=== PATIENT | female | born 1995 | race Caucasian/White ===

== ENCOUNTER 2016-10-10 18:32 | Emergency (ER) | payer BC ==
[2016-10-10 19:47] VITALS: BP 123/73
--- NOTE | 2016-10-10 20:23 | UC ---
Complaint Female HPI - HPI Summary HPI Summary: 1WEEK OF DYSURIA, INCREASED FREQUENCY, INCONTINENCE AND LOW BACK PAIN. PT VOMITED X1 2 DAYS AGO (PT HAS SEVERE GERD AND RAN OUT OF PPI- THOUGHT THAT MIGHT ACCOUNT FOR VOMITING). HAS FELT FEVERISH, CHILLS AND SWEATY ON AND OFF( IS IN THE PROCESS OF CHANGING PSYCH MEDS AND THOUGHT THAT THAT MIGHT ACCOUNT FOR THOSE SX). HAS BEEN STRUGGLING MENTALLY AND EMOTIONALLY LATELY. MUCH INCREASED STRESS. INCREASED SUICIDAL IDEATION. "IF I COULD THINK OF A WAY TO DO IT THAT WOULD WORK, I WOULD." - History Of Current Complaint Chief Complaint: UCGU Stated Complaint: URINARY Time Seen by Provider: 10/10/16 19:32 Hx Obtained From: Patient Hx Last Menstrual Period: 09/27/16 Onset/Duration: Gradual Onset, Lasting Weeks - 1, Still Present, Worse Since - LAST 2 DAYS Timing: Constant Severity Initially: Moderate Severity Currently: Moderate Character: Dull, Burning Aggravating Factor(s): Urination Alleviating Factor(s): Nothing Associated Signs And Symptoms: Positive: Fever - POSSIBLE, SUBJECTIVE, Back Pain , Nausea, Vomiting(# Of Episodes =) - 1. Negative: Vaginal Bleeding/Discharge, Vaginal Discharge, Genital Swelling, Genital Blisters - Allergies/Home Medications Allergies/Adverse Reactions: Allergies Allergy/AdvReac Type Severity Reaction Status Date / Time No Known Allergies Allergy Verified 10/10/16 19:16 Home Medications: Home Medications ARIPiprazole TAB* [Abilify TAB*] 15 mg PO DAILY 10/10/16 [History Confirmed 03/21] Desvenlafaxine Succinate [Pristiq] 50 mg PO DAILY 10/10/16 [History Confirmed ] Omeprazole CAP* [Prilosec CAP* 20 MG] 20 mg PO DAILY 10/10/16 [History Confirmed 10/10/16] Oxybutynin XL TAB* [Ditropan XL TAB*] 15 mg PO DAILY 10/10/16 [History Confirmed 10/10/16] PMH/Surg Hx/FS Hx/Imm Hx - Additional Past Medical History Additional PMH: INTERSTITIAL CYSTITIS, OVARIAN CYSTS GI/ History Of: Reports: Gastroesophageal Reflux Psychological History Of: Reports: Depression, Bipolar Disorder - BORDERLINE PERSONALITY - Surgical History Surgical History: None - Family History Known Family History: Negative: Cardiac Disease, Hypertension, Diabetes - Social History Occupation: Employed Part-time Lives: With Family Alcohol Use: Occasionally Substance Use Type: None Smoking Status (MU): Never Smoked Tobacco Review of Systems Constitutional: Fever, Chills Skin: Negative Eyes: Negative ENT: Negative Respiratory: Negative Cardiovascular: Negative Gastrointestinal: Abdominal Pain, Vomiting - 1 Genitourinary: Dysuria, Hematuria, Frequency, Urgency, Other - INCONTINENCE Motor: Negative Neurovascular: Negative Musculoskeletal: Negative Neurological: Negative Psychological: Anxious, Depressed All Other Systems Reviewed And Are Negative: Yes Physical Exam Triage Information Reviewed: Yes Appearance: Well-Appearing, No Pain Distress, Well-Nourished Vital Signs: Initial Vital Signs Temp 97.9 F 10/10/16 19:18 Pulse 82 10/10/16 19:18 Resp 18 10/10/16 19:18 BP 123/73 10/10/16 19:18 Pulse Ox 100 10/10/16 19:18 Vital Signs Reviewed: Yes Eyes: Positive: Conjunctiva Clear. Negative: Discharge ENT: Positive: Hearing grossly normal. Negative: Muffled/hoarse voice Neck exam: Normal Neck: Positive: Supple Respiratory: Positive: Lungs clear, Normal breath sounds, No respiratory distress, No accessory muscle use Cardiovascular: Positive: RRR, No Murmur Abdomen Description: Positive: Soft. Negative: Nontender - TENDER ACROSS LOWER ABDDIFFUSELY, CVA Tenderness (R), CVA Tenderness (L), Distended, Guarding, McBurney's Point Tenderness Bowel Sounds: Positive: Present Musculoskeletal Exam: Normal Musculoskeletal: Positive: Strength Intact Neurological: Positive: Alert, Muscle Tone Normal Psychological: Positive: Consolable, Other: - TEARFUL, DESPAIRING Skin Exam: Normal Complaint Female Dx - Course Course Of Treatment: UA POS FOR BLOD AND LEUKECYTE ESTERASE - Differential Dx/Diagnosis Differential Diagnosis/HQI/PQRI: Ovarian Cyst, Urinary Tract Infection Provider Diagnoses: SUICIDAL IDEATION, UTI Discharge - Discharge Plan Condition: Stable Disposition: [facility]
== END 2016-10-10 20:39 | disposition short-term general hospital (02) ==
LOC: UCCORT 18:32
DX: N39.0 Urinary tract infection, site not specified (principal); R31.9 Hematuria, unspecified; Z32.02 Encounter for pregnancy test, result negative; R45.851 Suicidal ideations; F60.3 Borderline personality disorder
CPT/HCPCS: 81025; 99203; G0463